=== PATIENT | female | born 1980 | race Caucasian/White ===

== ENCOUNTER 2017-02-10 22:20 | Inpatient (IN) | payer OTHER ==
[~2017-02-10 22:20] MED LIST: CLINDAMYCIN 900 MG PREMIX IVPB 50 ML IVPB ONE
[2017-02-10] MEDS: CLINDAMYCIN 600MG PREMIX IVPB 50 ML IVPB SCH (23:30)
[2017-02-10 23:34] LABS: BASOPHIL 0.2 % (0-2.0); EOSINOPHIL 0.3 % (0-4.5); MCH 31.9 pg (25.7-33.7); MCHC 34.9 g/dl (32.0-36.0); MEAN CELL VOLUME 91.5 fl (80-96); MEAN PLT VOLUME 9.7 fl (7.5-11.1); NEUTROPHILS 69.3 % (42.8-82.8); PLATELET COUNT 200 K/MM3 (134-434); RDW 13.3 % (11.6-15.6); WHITE BLOOD COUNT 10.7 K/mm3 (4.0-10.0)
[2017-02-10] MEDS ORDERED: DEXTROSE 5%-LACTATED RINGERS 1,000 ML IV SCH (23:45)
[2017-02-10 23:47] LABS: INR 0.88 (0.82-1.09); PROTHROMBIN TIME (PATIENT) 9.7 SEC (9.98-11.88)
[2017-02-10 23:59] LABS: ANION GAP 13 (8-16); CALCIUM 8.5 mg/dL (8.5-10.1); CO2 21 mmol/L (21-32); CREATININE 0.6 mg/dL (0.55-1.02); GLUCOSE,RANDOM 76 mg/dL (74-106)
[2017-02-11 00:12] VITALS: BMI 25.6
--- NOTE | 2017-02-11 01:07 | PN ---
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
[2017-02-11] MEDS ORDERED: ACETAMINOPHEN 325 MG TABLET (FP) PO PRN (01:38)
[2017-02-11] MEDS ORDERED: WITCH HAZEL 50% (TUCKS) 40 PAD/JAR PAD TP PRN (01:38)
[2017-02-11] MEDS ORDERED: IBUPROFEN 600 MG TABLET (FP) PO PRN (01:38)
[2017-02-11] MEDS ORDERED: BENZOCAINE 20% 57 GM BOTTLE TP PRN (01:38)
[2017-02-11] MEDS ORDERED: METHYLERGONOVINE MALEATE 0.2 MG/1 ML AMP IM PRN (01:38)
[2017-02-11] MEDS ORDERED: BISACODYL 10 MG SUPP.RECT RC PRN (01:38)
[2017-02-11] MEDS ORDERED: BENZOCAINE 28 GM HEMORRHOIDAL OINTMENT TP PRN (01:38)
--- NOTE | 2017-02-11 01:41 | HP ---
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: Alzheimer's, CVA, Dementia, Migraine, Multiple Sclerosis, Peripheral Neuropathy, Parkinson's, Seizure, Syncope, TIA, Vertigo, Other Cardiovascular: No: AFIB, Aneurysm, Aortic Insufficiency, Aortic Stenosis, CAD, CHF, Deep Vein Thrombosis, HTN, Hyperlipdemia, [place], Mitral Insufficiency, Mitral Stenosis, Murmur, Pulmonary Hypertension, Other Pulmonary: No: Asthma, Bronchitis, Cancer, COPD, O2 Dependent, Pneumonia, Previously Intubated, Pulmonary Embolus, Pulmonary Fibrosis, Sleep Apnea, Other Gastrointestinal: No: Ascites, Cancer, Constipation, Crohn's Disease, Diverticulitis, Diverticulosis, Esophageal Varices, Gastritis, GERD, GI Bleed, Hemorrhoids, Hiatal Hernia, Inflamatory Bowel Disease, Irritable Bowel Disease, Pancreatitis, Peptic Ulcer Disease, Ulcerative Colitis, Other Hepatobiliary: No: Cirrhosis, Cholelithiasis, Cholecystitis, Choledocholithiasis , Hepatitis A, Hepatitis B, Hepatitis C, Other Reproductive: No: Ectopic , Endometriosis, Fibroids, PID, Polycystic Ovary Syndrome, Postmenopausal, Other ...: 4 ...Para: 3 Heme/Onc: No: Anemia, B12 Deficiency, Bleeding Disorder, Cancer, Current Chemotherapy, Current Radiation Therapy, Hemochromatosis, Hypercoaguable State, Myeloproliferative Synd, Sickle Cell Disease, Sickle Cell Trait, Thrombocytopenia, Other Infectious Disease: No: AIDS, C-Diff, Herpes Zoster, HIV, MRSA, STD's, Tuberculosis, VREF, Other Psych: No: Addictions, Anxiety, Bipolar, Depression, Panic, Psychosis, Schizophrenia, Other - Smoking History Smoking history: Never smoked - Alcohol/Substance Use Hx Alcohol Use: No Home Medications - Allergies Allergies/Adverse Reactions: Allergies Allergy/AdvReac Type Severity Reaction Status Date / Time ampicillin Allergy Verified 02/10/17 23:38 - Home Medications Home Medications: Ambulatory Orders Plus Iron Tablet 1 tab PO DAILY 02/11/17 Review of Systems - Review of Systems Constitutional: reports: No Symptoms Eyes: reports: No Symptoms HENT: reports: No Symptoms Neck: reports: No Symptoms Cardiovascular: reports: No Symptoms Respiratory: reports: No Symptoms Gastrointestinal: reports: No Symptoms Genitourinary: reports: No Symptoms Breasts: reports: No Symptoms Reported Musculoskeletal: reports: No Symptoms Integumentary: reports: No Symptoms Neurological: reports: No Symptoms Endocrine: reports: No Symptoms Physical Examination Vital Signs: Vital Signs Temperature 98.1 F 02/10/17 23:59 Pulse Rate 78 02/10/17 23:59 Respiratory Rate 20 02/10/17 23:59 Blood Pressure 128/86 02/10/17 23:59 O2 Sat by Pulse Oximetry (%) Constitutional: Yes: Well Nourished Eyes: Yes: WNL HENT: Yes: WNL Neck: Yes: WNL Cardiovascular: Yes: WNL Respiratory: Yes: WNL Gastrointestinal: Yes: WNL ...Rectal Exam: Yes: WNL Renal/: Yes: WNL Breast(s): Yes: WNL Musculoskeletal: Yes: WNL Extremities: Yes: WNL Labs: CBC, BMP 02/10/17 23:15 02/10/17 23:15 Assessment/Plan as above admit labor labs
[2017-02-11] MEDS ORDERED: ELECTROLYTE-148 SOLN 1,000 ML IV SCH (01:45)
[2017-02-11] MEDS ORDERED: OXYTOCIN 20 UNITS in 0.9% NS 1,000 ML IV SCH (01:45)
[2017-02-11] MEDS: CLINDAMYCIN 600MG PREMIX IVPB 50 ML IVPB SCH (06:46)
--- NOTE | 2017-02-12 05:35 | PN ---
Post Progress Note Post Day: 1 Type of Delivery: Vital Signs: Vital Signs Temperature 98.9 F 02/11/17 22:00 Pulse Rate 76 02/11/17 22:00 Respiratory Rate 18 02/11/17 22:00 Blood Pressure 101/62 02/11/17 22:00 O2 Sat by Pulse Oximetry (%) Breast Exam: Yes: Soft Uterus: Yes: Fundus Firm Abdomen/GI: Yes: Abdomen soft Lochia: Yes: Rubra Lochia, amount: Small Extremities: Yes: Calves non-tender Perineum: Yes: Intact Activity: Ambulating - Labs Labs: CBC WBC 10.7 K/mm3 (4.0-10.0) H 02/10/17 23:15 RBC 3.80 M/mm3 (3.60-5.2) 02/10/17 23:15 Hgb 12.1 GM/dL (10.7-15.3) 02/10/17 23:15 Hct 34.8 % (32.4-45.2) 02/10/17 23:15 MCV 91.5 fl (80-96) 02/10/17 23:15 MCH 31.9 pg (25.7-33.7) 02/10/17 23:15 MCHC 34.9 g/dl (32.0-36.0) 02/10/17 23:15 RDW 13.3 % (11.6-15.6) 02/10/17 23:15 Plt Count 200 K/MM3 (134-434) 02/10/17 23:15 MPV 9.7 fl (7.5-11.1) 02/10/17 23:15 Neutrophils % 69.3 % (42.8-82.8) 02/10/17 23:15 Lymphocytes % 23.3 % (8-40) 02/10/17 23:15 Monocytes % 6.9 % (3.8-10.2) 02/10/17 23:15 Eosinophils % 0.3 % (0-4.5) 02/10/17 23:15 Basophils % 0.2 % (0-2.0) 02/10/17 23:15 Assessment/Plan asa bobve possible dc home today oob rewg diet
[2017-02-12 08:27] LABS: BASOPHIL 0.3 % (0-2.0); EOSINOPHIL 0.4 % (0-4.5); MCHC 34.4 g/dl (32.0-36.0); MEAN PLT VOLUME 8.9 fl (7.5-11.1); NEUTROPHILS 72.7 % (42.8-82.8); PLATELET COUNT 169 K/MM3 (134-434); RDW 13.2 % (11.6-15.6); WHITE BLOOD COUNT 10.1 K/mm3 (4.0-10.0)
[2017-02-12] MEDS ORDERED: SENNOSIDES/DOCUSATE COMBO (SENNA PLUS) TABLET (UD) PO PRN (22:00)
[2017-02-13 09:12] VITALS: BP 118/65; PULSE 60; TEMP 98.4
== END 2017-02-13 13:30 | disposition home or self-care (01) | DRG 560 ==
LOC: JLDR 22:20 → J3W 02-11 03:47
PROVIDERS: ADMIT Obstetrics & Gynecology; ATTEND Obstetrics & Gynecology
PROC: 10E0XZZ Delivery of Products of Conception, External Approach (ICD-10-PCS; principal; 2017-02-11)
DX: O69.81X0 Labor and delivery complicated by cord around neck, without compression, not applicable or unspecified (principal); O09.523 Supervision of elderly multigravida, third trimester; Z3A.39 39 weeks gestation of pregnancy; Z37.0 Single live birth
CPT/HCPCS: 36415; 59409; 80048; 85025; 85610; 85730; 86593; 86850; 86900; 86901